=== PATIENT | male | born 1965 ===

== ENCOUNTER 2018-03-09 17:29 | Emergency (ER) | payer SELFPAY ==
[2018-03-09 18:12] VITALS: BMI 26.1
--- NOTE | 2018-03-09 19:20 | C.PDOC ---
History Of Present Illness 52 year old male presents to the emergency department with complaints of sudden onset of pain and dislocation to his right shoulder. Patient reports multiple right shoulder dislocations in the past, with surgery to repair which has been unsuccessful. He reports that he was cleaning something over his head in a circular motion when he felt the dislocation. Patient has a history of alcoholism and is still drinking. Time Seen by Provider: 03/09/18 18:59 Chief Complaint (Nursing): Upper Extremity Problem/Injury History Per: Patient History/Exam Limitations: no limitations Onset/Duration Of Symptoms: Hrs Current Symptoms Are (Timing): Still Present Quality: "Pain" Past Medical History Reviewed: Historical Data, Nursing Documentation, Vital Signs Vital Signs: Last Vital Signs Temp 98.6 F 03/09/18 18:12 Pulse 91 H 03/09/18 18:12 Resp 18 03/09/18 18:12 BP 130/88 03/09/18 18:12 Pulse Ox 98 03/09/18 18:12 - Medical History PMH: No Chronic Diseases Surgical History: No Surg Hx Family History: States: No Known Family Hx - Social History Hx Alcohol Use: Yes Hx Substance Use: No - Immunization History Hx Tetanus Toxoid Vaccination: No Hx Influenza Vaccination: No Hx Pneumococcal Vaccination: No Review Of Systems Except As Marked, All Systems Reviewed And Found Negative. Constitutional: Negative for: Fever, Chills Cardiovascular: Negative for: Chest Pain Respiratory: Negative for: Shortness of Breath Gastrointestinal: Negative for: Nausea, Vomiting, Diarrhea Musculoskeletal: Positive for: Shoulder Pain (right shoulder) Physical Exam - Physical Exam Appears: Non-toxic, In Acute Distress Skin: Normal Color, Warm, Dry Head: Atraumatic, Normacephalic Eye(s): bilateral: Normal Inspection, PERRL, EOMI Oral Mucosa: Moist, Other (alcohol on breath) Neck: Normal, Supple Chest: Symmetrical, No Tenderness Cardiovascular: Rhythm Regular Respiratory: Normal Breath Sounds Extremity: Tenderness (tenderness to right shoulder consistent with disloca tion), Other (deltoid stepoff) Pulses: Right Brachial: Normal, Left Radial: Normal Neurological/Psych: Oriented x3, Normal Speech, Normal Cognition, Other (cooperative) ED Course And Treatment O2 Sat by Pulse Oximetry: 98 (RA) Pulse Ox Interpretation: Normal - Other Rad R shoulder X-Ray: Interpreted by Me (good reloc, no fx) Reevaluation Time: 19:49 Reassessment Condition: Improved Medical Decision Making Medical Decision Making: spontaneous R shoulder disloc reaching above and in front while cleaning Pt prefereed to NOT use sedation, and was easily relocated using reloc maneuvers good n/v eval s/p reloc film confirms reloc and no fx (NO pre- procedure film was taken) Plan: XR Right Shoulder Tylenol 975mg PO performed traction on right shoulder, spontaneously reduced the dislocation. Disposition Doctor Will See Patient In The: Office Counseled Patient/Family Regarding: Studies Performed, Diagnosis - Disposition Referrals: [facility] [Outside] [facility] [Outside] [facility] [Outside] [facility] [Outside] [facility] [facility] [Outside] Miguel Ángel Stokes MD [Staff Provider] - Disposition: HOME/ ROUTINE Disposition Time: 19:51 Condition: GOOD Additional Instructions: mantiene bendage del hombro en carrera lugar por 3 [place] 1/2 hora por hora. [place] caliente Sigue con la Clinica o' con el Orthoped[facility] jessica necessario Instructions: Shoulder Dislocation (DC) Forms: [facility] (Welsh) Print Language: HUNGARIAN - Clinical Impression Clinical Impression: Recurrent dislocation, right shoulder - Scribe Statement The provider has reviewed the documentation as recorded by the Scribe (Terry Liu) Provider Attestation: All medical record entries made by the Scribe were at my direction and personally dictated by me. I have reviewed the chart and agree that the record accurately reflects my personal performance of the history, physical exam, medical decision making, and the department course for this patient. I have also personally directed, reviewed, and agree with the discharge instructions and disposition.
[2018-03-09 20:07] VITALS: BP 124/81; PULSE 81; RESP 16; TEMP 98.4
[2018-03-09 20:42] VITALS: O2SAT 98
--- NOTE | 2018-03-10 09:03 | RAD ---
Date of service: 03/09/2018 PROCEDURE: HISTORY: s/p R shoulder relocation- 1 view to confirm COMPARISON: None available TECHNIQUE: Single frontal view FINDINGS: The humeral head projects over the glenoid fossa along its inferior aspect. Study is limited without any additional views. No gross dislocation appreciated. Acromioclavicular joint space is narrowed with mild arthrosis here. Glenohumeral arthrosis noted. Cervical and thoracic spondylosis present Faint calcification projects over the superior right subacromial space-calcific rotator cuff tendinopathy and/or calcific bursitis are some considerations. IMPRESSION: No fracture grossly appreciated. No gross dislocation of the right shoulder noted. However, the exam is limited with this single view. Correlate clinically Other findings as above.
== END 2018-03-09 20:29 | disposition home or self-care (01) ==
LOC: C.ER 17:29
DX: M24.411 Recurrent dislocation, right shoulder (principal)

== ENCOUNTER 2018-04-23 09:28 | Outpatient (CLI) | payer OTHER | END 2018-04-23 09:29 | disposition home or self-care (01) | LOC: C.MRIC 09:29 | DX: M75.101 Unspecified rotator cuff tear or rupture of right shoulder, not specified as traumatic (principal) ==